=== PATIENT | female | born 1960 | race Caucasian/White ===

== ENCOUNTER 2018-05-06 01:45 | Inpatient (IN) | payer OTHER ==
[2018-05-06] VITALS (7 sets, daily range): BP systolic 108–132; BP diastolic 55–112
[~2018-05-06] VITALS: Ht 160 cm; Wt 110.7 kg
--- NOTE | 2018-05-06 02:02 | NUR ---
PT TAKEN TO BED 3
--- NOTE | 2018-05-06 02:05 | NUR ---
Sung kaur in [facility] - 05/06/18 at 0207 by MALOU PT TAKEN TO BED 3
[2018-05-06] MEDS ORDERED: PRON INH (02:07)
[2018-05-06] MEDS ORDERED: ERY250 PO (02:07)
--- NOTE | 2018-05-06 02:10 | NUR ---
PATIENT PRESENTS TO ED WITH COUGH AND SOB. PT STATES THAT SHE FEELS LIKE SHE IS HAVING A HARD TIME CATCHING HER BREATH WAS TAKEN AN INHALER AT HOME W/O RELIEF. +NAUSEA; DENIES V/D; SKIN IS PINK/WARM/DRY; AAOX4 WITH EVEN AND STEADY GAIT; LUNG SOUNDS - AUDIBLE WHEEZING THROUGH OUT; HR EVEN AND REGULAR; PT DENIES ANY FEVER OR CP; PATIENT STATES PAIN OF 0/10 AT THIS TIME; VSS; PATIENT POSITIONED FOR COMFORT; HOB ELEVATED; BEDRAILS UP X2; BED DOWN. ER MD MADE AWARE OF PT STATUS. PMH--KIDNEY STONES, LITHOTRIPSY RX--DENIES
--- NOTE | 2018-05-06 02:14 | NUR ---
Dr. Otero evaluating patient at bedside.
[2018-05-06] MEDS ORDERED: MAG SULF 2000 MG/WATER PREMIX 50 ML IV ONE (02:20)
[2018-05-06] MEDS ORDERED: methylPREDNISolone SS 125 MG/2 ML VIAL IVP ONE (02:20)
[2018-05-06] MEDS ORDERED: NACL 0.9% 1,000 ML IV ONE (02:20)
[2018-05-06] MEDS ORDERED: ALBUTEROL SULFATE/IPRATROPIU 3 ML SOL IH ONE ×2 (02:20→03:00)
--- NOTE | 2018-05-06 02:25 | NUR ---
Respiratory Therapist at bedside for respiratory intervention
--- NOTE | 2018-05-06 02:31 | NUR ---
RT AT BEDSIDE.
[2018-05-06 02:33] LABS: BASOPHILS # (AUTO) 0.1 K/uL (0.00-0.22); BASOPHILS % (AUTO) 1.5 % (0.0-2.0); EOSINOPHILS # (AUTO) 0.1 K/uL (0-0.4); EOSINOPHILS % (AUTO) 1.6 % (0.0-4.0); HEMATOCRIT 42.7 % (36-48); HEMOGLOBIN 13.8 g/dL (12.0-16.0); LYMPHOCYTES # (AUTO) 2.8 K/uL (2.5-16.5); LYMPHOCYTES % (AUTO) 43.2 % (20.5-51.1); MEAN CORPUSCULAR HEMOGLOBIN 27 pg (27-31); MEAN CORPUSCULAR HGB CONC 32 g/dL (33-37); MEAN CORPUSCULAR VOLUME 84.3 fL (80-94); MONOCYTES # (AUTO) 0.7 K/uL (0.8-1.0); MONOCYTES % (AUTO) 10.2 % (1.7-9.3); NEUTROPHILS # (AUTO) 2.8 K/uL (1.8-7.7); NEUTROPHILS % (AUTO) 43.5 % (42.2-75.2); PLATELET COUNT (AUTO) 209 K/uL (140-450); RED BLOOD CELL COUNT(AUTO) 5.06 MIL/uL (4.20-5.40); RED CELL DISTRIBUTION WIDTH 14.3 % (11.6-13.7); WHITE BLOOD COUNT (AUTO) 6.4 K/uL (4.8-10.8)
--- NOTE | 2018-05-06 02:35 | NUR ---
X-RAY AT BEDSIDE.
[2018-05-06 02:48] LABS: ANION GAP 9.5 (8-16); CREATININE 0.8 mg/dL (0.6-1.3); POTASSIUM 3.5 mmol/L (3.5-5.1); TOTAL BILIRUBIN 0.2 mg/dL (0.0-1.0)
[2018-05-06 02:53] LABS: PROTHROMBIN TIME 9.3 secs (10.8-13.4)
--- NOTE | 2018-05-06 04:00 | NUR ---
Patient will be admitted to care of Dr. Nichols. Admited to Tele. Will go to [id number]. Belongings list completed. Report to Dawson JONES.
--- NOTE | 2018-05-06 04:05 | NUR ---
ADMITTED THIS 57 YEAR OLD FROM ER PER VIKASH WITH CC OF COUGH, CONGESTION AND SOB FOR 3 WEEKS, AMBULATED TO BED WITH STEADY GAIT, ASSESSMENT DONE, PT ON OXYGEN VIA NASAL CANNULA AT 2L, WITH DRY COUGH NOTED, COMPLAINING OF CHEST WALL/MUSCLE PAIN WHEN COUGHING, VITAL SIGNS STABLE, 94% SAT, SKIN INTACT WITH HEALED SURGICAL WOUND FROM ABDOMEN, ORIENTED TO ROOM AND CALL LIGHT, PLAN OF CARE DISCUSSED, SAFETY MEASURES IN PLACE, CALL LIGHT WITHIN REACH.
[2018-05-06] MEDS: guaiFENesin/CODEINE 100/10MG 5 ML UDC PO PRN ×2 (05:28→20:17)
--- NOTE | 2018-05-06 05:30 | NUR ---
PAGED DR VERA FOR ADMIT ORDERS, ORDERS CARRIED OUT, MEDICATED PRN WITH COUGH MEDICATION, NO RESP DISTRESS AT THIS TIME, MONITORED CLOSELY.
--- NOTE | 2018-05-06 07:16 | NUR ---
PT SLEEPING, EASILY AROUSABLE, NO DISTRESS NOTED, REPORT GIVEN TO RN ROSHNI FOR CONTINUITY OF CARE.
--- NOTE | 2018-05-06 07:23 | NUR ---
RECEIVED BEDSIDE REPORT FROM CIGAR MACHINE FEEDER RN FOR CONTINUITY OF CARE. PT IN STABLE CONDITION. SATURATING 92% ON 2L NC. NO WHEEZING, LUNGS CTA. NO S/S DISTRESS. RESPIRATIONS EVEN AND UNLABORED. HEART RHYTHM REGULAR. PT C/O CHEST WALL MUSCLE PAIN WITH COUGHING. DRY COUGH, NO SPUTUM. RECEIVED PRN COUGH MEDICATION ALREADY. PATIENT WILL DISCUSS WITH DR. CLEMENTS. ACTIVE BS IN ALL QUADRANTS. ABDOMEN SOFT AND NON-DISTENDED. SKIN INTACT. PT IS AMBULATORY WITHOUT ASSIST. IV SITE PATENT AND ASYMPTOMATIC. ALL SAFETY PRECAUTIONS IN PLACE, WILL CONTINUE TO MONITOR.
[2018-05-06] MEDS: ALBUTEROL SULFATE/IPRATROPIU 3 ML SOL IH SCH ×5 (08:03→23:29)
--- NOTE | 2018-05-06 08:18 | NUR ---
PATIENT HAS BEEN SCREENED AND CATEGORIZED HIGH NUTRITION RISK. PATIENT WILL BE SEEN WITHIN 1-2 DAYS OF ADMISSION. 05/06/18-05/07/[address]
[2018-05-06] MEDS ORDERED: ACETAMINOPHEN 325 MG TAB PO PRN (08:40)
[2018-05-06] MEDS: ENOXAPARIN 40 MG/0.4 ML SYR SUBQ SCH (09:00)
[2018-05-06] MEDS: BENZONATATE 100 MG CAPLF PO SCH ×3 (09:17→17:09)
[2018-05-06] MEDS: FAMOTIDINE 20 MG TAB PO SCH (09:17)
[2018-05-06] MEDS: AZITHROMYCIN 250 MG TAB PO SCH (09:17)
--- NOTE | 2018-05-06 10:11 | NUR ---
APPLIED K PAD TO CHEST- SORE MUSCLES.
[2018-05-06] MEDS: methylPREDNISolone SS 40 MG/ML VIAL IVP SCH ×2 (12:27→20:16)
--- NOTE | 2018-05-06 13:02 | NUR ---
PT STATES THE K PAD IS HELPING DECREASED THE CHEST WALL MUSCLE DISCOMFORT.
--- NOTE | 2018-05-06 13:44 | NUR ---
05/06/18 RD INITIAL ASSESSMENT COMPLETED PLEASE REFER TO NUTRITION ASSESSMENT UNDER CARE ACTIVITY FOR ESTIMATED NUTRITIONAL NEEDS. 1. CONTINUE REGULAR DIET TOLERATED 2. RD REVIEWED HEART HEALTHY DIET EDUCATION WITH PATIENT 3. RD TO FOLLOW-UP 5-7 DAYS, LOW RISK RODY ARRIAGA RD
--- NOTE | 2018-05-06 15:39 | NUR ---
PT RESTING IN BED, ON CELLPHONE. NO C/O PAIN OR DISCOMFORT. NO S/S RESPIRATORY DISTRESS. ALL SAFETY PRECAUTIONS IN PLACE, WILL CONTINUE TO MONITOR.
--- NOTE | 2018-05-06 19:28 | NUR ---
ENDORSED POC TO RETAIL ACCOUNT EXECUTIVE RN. PT IN STABLE CONDITION.
--- NOTE | 2018-05-06 19:30 | NUR ---
RECEIVED REPORT FROM DAYSHIFT NURSE AT BEDSIDE FOR CONTINUITY OF CARE. PT AAOX4. PT IV NOTED R HAND 20G TKO. NO SOB NO S/S OF DISTRESS ON RA. BED LOWERED CALL LIGHT WITHIN REACH WILL CONTINUE MONITOR.
[2018-05-07] MEDS: ALBUTEROL SULFATE/IPRATROPIU 3 ML SOL IH SCH ×3 (03:13→13:36)
[2018-05-07 04:00] VITALS: BP 136/65
[2018-05-07] MEDS: methylPREDNISolone SS 40 MG/ML VIAL IVP SCH ×2 (05:05→13:00)
--- NOTE | 2018-05-07 07:18 | NUR ---
RECEIVED PATIENT ON ROOM AIR, PULSE OX 96%. SCHEDULED BREATHING TREATMENTS ADMINISTERED. TOLERATED TX WELL, NO ADVERSE SIDE EFFECTS. NO RESPIRATORY DISTRESS NOTED AT THIS TIME. WILL CONTINUE TO MONITOR.
--- NOTE | 2018-05-07 07:27 | NUR ---
ENDORSED REPORT TO DAYSHIFT NURSE AT BEDSIDE FOR CONTINUITY OF CARE.
--- NOTE | 2018-05-07 07:30 | NUR ---
RECEIVED PT FROM NURSE MONITORING NURSESUMIT, PT IS AWAKE AND WALKING FROM THE BATHROOM TO THE BED, PT HAS AN IV LINE ON THE RT HAND G. 20 WITH NS AT TKO, 10ML/HR, INFUSING, INTACT, PT DENIES PAIN AND SOB. NO SIGN OF DISTRESS NOTED AND WILL MONITOR PT.
[2018-05-07 08:00] VITALS: BP 127/80
--- NOTE | 2018-05-07 08:00 | NUR ---
PT IS AWAKE AND VITAL SIGNS TAKEN AND IS WITHIN NORMAL LIMIT. NO SIGN OF DISTRESS NOTED AND WILL MONITOR PT.
[2018-05-07] MEDS: ENOXAPARIN 40 MG/0.4 ML SYR SUBQ SCH (09:00)
[2018-05-07] MEDS ORDERED: PRED20TA6 PO (09:12)
[2018-05-07] MEDS ORDERED: BENZ100C6 PO (09:12)
[2018-05-07] MEDS: BENZONATATE 100 MG CAPLF PO SCH ×2 (09:30→13:00)
[2018-05-07] MEDS: AZITHROMYCIN 250 MG TAB PO SCH (09:30)
[2018-05-07] MEDS: FAMOTIDINE 20 MG TAB PO SCH (09:30)
--- NOTE | 2018-05-07 09:32 | NUR ---
PT IS AWAKE AND ORAL MEDICATIONS WERE GIVEN AND PT TOLERATED IT, PT REFUSED TO TRAKE THE LOVENOX, BECAUSE PT VERBALIZED THAT SHE DID NOT WANT I BECAUSE SHE BELIEVES THAT HER BLOOD IS ALREADY THAT THIN AND SHE KNOW HOW TO MANAGE HER NOT HAVING CLOTS IN OTHER MANAGEMENT.
[2018-05-07 12:00] VITALS: BP 123/57
--- NOTE | 2018-05-07 13:00 | NUR ---
PT IS AWAKE AND SEATED ON THE BED, PT REFUSED MEDICATIONS AT THIS TIME.
--- NOTE | 2018-05-07 13:50 | NUR ---
PT'S HUMAN RESOURCES TALENT MANAGER WAS REMOVED AND WAS HANDED TO EVANS ARENAS. DISCHARGE PRESCRIPTION INSTRUCTION GIVEN TO PT AND VERBALIZED UNDERSTANDING.
--- NOTE | 2018-05-07 14:15 | NUR ---
DISCHARGE PT VIA WHEELCHAIR WITH THE , IV LINE AND ARM BAND REMOVED, DISCHARGE TEACHINGS AND INSTRUCTIONS GIVEN AND PT VERBALIZED UNDERSTANDING. PT IS STABLE AT THIS TIME.
== END 2018-05-07 14:15 | disposition home or self-care (01) | DRG 140 ==
LOC: MED 01:45 → MTU 03:37 → OBSVTOIN 16:34
PROVIDERS: ADMIT Internal Medicine; ATTEND Internal Medicine
DX: J44.0 Chronic obstructive pulmonary disease with (acute) lower respiratory infection (principal); R65.10 Systemic inflammatory response syndrome (SIRS) of non-infectious origin without acute organ dysfunction; E44.1 Mild protein-calorie malnutrition; Z68.41 Body mass index [BMI] 40.0-44.9, adult; J44.1 Chronic obstructive pulmonary disease with (acute) exacerbation; J20.9 Acute bronchitis, unspecified; E66.9 Obesity, unspecified; Z90.710 Acquired absence of both cervix and uterus; Z90.722 Acquired absence of ovaries, bilateral
CPT/HCPCS: 96374; 99285; G0378; 36415; 71045; 80053; 84484; 85025; 85610; 85730; 87081; 93005; 94640; J1650; J2920; J2930; J3475; J7620; Q0092

== ENCOUNTER 2018-12-02 06:01 | Emergency (ER) | payer OTHER ==
[~2018-12-02] VITALS: Ht 160 cm; Wt 112.5 kg
[~2018-12-02 06:01] MED LIST: BENZ100C6 PO; ERY250 PO; PRED20TA6 PO; PRON INH
[2018-12-02 06:11] VITALS: BP 169/100
[2018-12-02 07:23] LABS: BASOPHILS # (AUTO) 0.1 K/uL (0.00-0.22); BASOPHILS % (AUTO) 1.2 % (0.0-2.0); EOSINOPHILS # (AUTO) 0.2 K/uL (0-0.4); EOSINOPHILS % (AUTO) 2.6 % (0.0-4.0); HEMATOCRIT 42.7 % (36-48); LYMPHOCYTES # (AUTO) 3.8 K/uL (2.5-16.5); LYMPHOCYTES % (AUTO) 40.8 % (20.5-51.1); MEAN CORPUSCULAR HEMOGLOBIN 28 pg (27-31); MEAN CORPUSCULAR HGB CONC 33 g/dL (33-37); MEAN CORPUSCULAR VOLUME 84.5 fL (80-94); MONOCYTES # (AUTO) 0.6 K/uL (0.8-1.0); MONOCYTES % (AUTO) 6.6 % (1.7-9.3); NEUTROPHILS # (AUTO) 4.6 K/uL (1.8-7.7); NEUTROPHILS % (AUTO) 48.8 % (42.2-75.2); PLATELET COUNT (AUTO) 262 K/uL (140-450); RED BLOOD CELL COUNT(AUTO) 5.06 MIL/uL (4.20-5.40); RED CELL DISTRIBUTION WIDTH 15.4 % (11.6-13.7); WHITE BLOOD COUNT (AUTO) 9.4 K/uL (4.8-10.8)
[2018-12-02 07:27] LABS: ANION GAP 13.3 (8-16); CARBON DIOXIDE 27.9 mmol/L (21-32); CREATININE 0.7 mg/dL (0.6-1.3); POTASSIUM 4.2 mmol/L (3.5-5.1)
[2018-12-02 08:11] VITALS: BP 150/74
== END 2018-12-02 08:10 | disposition home or self-care (01) ==
LOC: MED 06:01
DX: R60.0 Localized edema (principal); R73.9 Hyperglycemia, unspecified; I10 Essential (primary) hypertension; Z79.899 Other long term (current) drug therapy; Z79.2 Long term (current) use of antibiotics; Z91.09 Other allergy status, other than to drugs and biological substances
CPT/HCPCS: 36415; 80048; 85025; 93970; 99284; Q0092

== ENCOUNTER 2018-12-29 14:53 | Emergency (ER) | payer OTHER ==
[~2018-12-29] VITALS: Ht 160 cm; Wt 108.0 kg
[2018-12-29 15:09] VITALS: BP 124/70
--- NOTE | 2018-12-29 15:11 | NUR ---
PT TO EMA PLUMMER. VSS. [id number]
--- NOTE | 2018-12-29 15:17 | NUR ---
PT AMBULATED TO BED 08.
--- NOTE | 2018-12-29 15:23 | NUR ---
PT TO ED WITH C/O L EAR PAIN. DENIES INJURY/TRAUMA TO EAR. NO FOREIGN BODY NOTED. PT STATES SHE IS UNABLE TO HEAR OUT OF LEFT EAR. ANSWERING QUESTIONS APPROPRIATLEY. IN BED FOR MD HILL.
[2018-12-29] MEDS ORDERED: KETOROLAC 30 MG/ML VIAL IM ONE (16:15)
[2018-12-29 16:44] VITALS: BP 106/65
--- NOTE | 2018-12-29 16:45 | NUR ---
Patient discharged with v/s stable. Written and verbal after care instructions given and explained. Patient alert, oriented and verbalized understanding of instructions. Ambulatory with steady gait. All questions addressed prior to discharge. ID band removed. Patient advised to follow up with PMD. Rx of OFLOXACIN, KEFLEX given. Patient educated on indication of medication including possible reaction and side effects. Opportunity to ask questions provided and answered.
== END 2018-12-29 16:45 | disposition home or self-care (01) ==
LOC: MED 14:53
DX: H66.92 Otitis media, unspecified, left ear (principal); H61.002 Unspecified perichondritis of left external ear; I10 Essential (primary) hypertension; Z79.51 Long term (current) use of inhaled steroids; Z79.2 Long term (current) use of antibiotics; Z79.899 Other long term (current) drug therapy; Z91.041 Radiographic dye allergy status
CPT/HCPCS: 96372; 99283; J1885

== ENCOUNTER 2019-01-02 14:07 | Observation (INO) | payer OTHER ==
[~2019-01-02] VITALS: Ht 160 cm; Wt 104.3 kg
--- NOTE | 2019-01-02 | NUR ---
CHECKED ON PATIENT, SLEEPING, NO COMPLAINTS AT THIS TIME Addendum: 01/03/19 at 1323 by Romelia Carpenter RN CHANGE DATE
--- NOTE | 2019-01-02 14:20 | NUR ---
ER AT BEDSIDE
[2019-01-02 14:23] VITALS: BP 143/73
--- NOTE | 2019-01-02 14:31 | NUR ---
BIB C/O MIRNA LEGS PAIN X YESTERDAY & WITNESS SYNCOPAL EPISODE AT LOBBY . DENIES N/V/D;PATIENT STATES PAIN OF 5/10 AT THIS TIME; PATIENT POSITIONED FOR COMFORT; HOB ELEVATED; BEDRAILS UP X1; BED DOWN. ER MD MADE AWARE OF PT STATUS.
[2019-01-02 15:44] LABS: BASOPHILS # (AUTO) 0.1 K/uL (0.00-0.22); BASOPHILS % (AUTO) 0.7 % (0.0-2.0); EOSINOPHILS # (AUTO) 0.2 K/uL (0-0.4); HEMOGLOBIN 14.7 g/dL (12.0-16.0); LYMPHOCYTES # (AUTO) 3.6 K/uL (2.5-16.5); LYMPHOCYTES % (AUTO) 44.4 % (20.5-51.1); MEAN CORPUSCULAR HEMOGLOBIN 28 pg (27-31); MEAN CORPUSCULAR HGB CONC 33 g/dL (33-37); MEAN CORPUSCULAR VOLUME 86.2 fL (80-94); MONOCYTES # (AUTO) 0.4 K/uL (0.8-1.0); MONOCYTES % (AUTO) 5.6 % (1.7-9.3); NEUTROPHILS # (AUTO) 3.8 K/uL (1.8-7.7); NEUTROPHILS % (AUTO) 47.3 % (42.2-75.2); PLATELET COUNT (AUTO) 276 K/uL (140-450); RED BLOOD CELL COUNT(AUTO) 5.23 MIL/uL (4.20-5.40); RED CELL DISTRIBUTION WIDTH 14.4 % (11.6-13.7)
[2019-01-02 16:07] LABS: ALBUMIN 3.9 g/dL (3.4-5.0); ANION GAP 13.8 (8-16); CARBON DIOXIDE 27.7 mmol/L (21-32); CREATININE 0.6 mg/dL (0.6-1.3); POTASSIUM 3.5 mmol/L (3.5-5.1); TOTAL BILIRUBIN 0.6 mg/dL (0.0-1.0)
--- NOTE | 2019-01-02 18:08 | NUR ---
Patient being reevaluated by DR FUNES at bedside.
[2019-01-02] MEDS ORDERED: HYDR-39 PO (18:55)
--- NOTE | 2019-01-02 19:10 | NUR ---
Pt report given to melissa frances. Transfer of care at this time.
[2019-01-02] MEDS ORDERED: ONDANSETRON 4 MG/2 ML VIAL IVP PRN (20:15)
--- NOTE | 2019-01-02 20:23 | NUR ---
PT TAKEN TO CT
--- NOTE | 2019-01-02 20:41 | NUR ---
PT RETURN FROM CT
--- NOTE | 2019-01-02 21:00 | NUR ---
RECEIVED PT FROM MED; A, A 0 X 4. AMBULATORY W/ STEADY GAIT, STANDY ASSIST FOR SYCOPE. 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 POC DISCUSSED ORIENTED TO UNIT. PLACED IN A COMFORTABLE POSITION, CALL LIGHT W/IN REACH. WILL CONTINUE TO MONITOR
--- NOTE | 2019-01-02 21:10 | NUR ---
PT ADMITTED TO [facility] RM 125B. PT TRANSFERRED VIA RPAOLI, STABLE CONDITION. REPORT GIVEN TO MIKE JONES. PT CARE TRANSFERRED TO RECEIVING RN.
--- NOTE | 2019-01-02 22:00 | NUR ---
MELVIN VISITED PT, STAYED FOR LESS THAN HOUR AND LEFT. WILL CONTINUE TO MONITOR
--- NOTE | 2019-01-02 22:36 | NUR ---
PT C/O OF HEADACHE, WILL CALL DOCTOR FOR AN ORDER
[2019-01-02] MEDS ORDERED: ACETAMINOPHEN 325 MG TAB PO PRN (22:40)
[2019-01-03] VITALS: BP 100/50
--- NOTE | 2019-01-03 | NUR ---
CHECKED ON PATIENT, SLEEPING, NO COMPLAINTS AT THIS TIME
--- NOTE | 2019-01-03 02:08 | NUR ---
PT TEXTING ON HER PHONE, SHE SAID SHE'S TALKING TO HER FRIENDS. NO COMPLAINTS; NO SIGNS AND SYMPTOMS OF SYNCOPE
--- NOTE | 2019-01-03 04:01 | NUR ---
PT TRYING TO GET SOME SLEEP, WENT TO THE BATHROOM, STEADY GAIT. NO SIGNS AND SYMPTOMS OF SYNCOPE
--- NOTE | 2019-01-03 06:30 | NUR ---
PT USED HER CALL LIGHT AND INFORMED THE NURSE THAT SHE WANTS TO GO TO THE BATHROOM, ADAMA EASLEY ACHECKED ON HER WHILE SHE WAS IN THE BATHROOM.
--- NOTE | 2019-01-03 06:40 | NUR ---
PATIENT HAS BEEN SCREENED AND CATEGORIZED HIGH NUTRITION RISK. PATIENT WILL BE SEEN WITHIN 1-2 DAYS OF ADMISSION. 01/04/19-01/05/19 MORENO AYERS MS, RDN
[2019-01-03 06:50] VITALS: BP 110/50
--- NOTE | 2019-01-03 07:15 | NUR ---
IN BETWEEN SHIFT CHANGE, WENT TO THE PT'S ROOM TO ENDORSE TO KAREN JAY, AND FOUND OUT THAT PT HAS LEFT THE UNIT .HER THINGS AND BAG WERE GONE. WITH THE TELEMONITOR AND HER DRESSING GOWN PLACED ON THE BED.
--- NOTE | 2019-01-03 07:30 | NUR ---
INFORMED SECURITY ELVIN,AND SHE WILL BE BACK TO CHECK ON THE DETAILS.
--- NOTE | 2019-01-03 07:45 | NUR ---
DR. JOSE GUADALUPE MOELLER CALLED BACK, AND AWARE THAT HIS PATIENT LEFT THE UNIT.
[2019-01-03] MEDS ORDERED: ENOXAPARIN 40 MG/0.4 ML SYR SUBQ SCH (09:00)
== END 2019-01-03 07:06 | disposition left against medical advice (07) ==
LOC: MED 14:07 → MMU 20:18
PROVIDERS: ADMIT Internal Medicine Pulmonary Disease; ATTEND Internal Medicine Pulmonary Disease
DX: I82.441 Acute embolism and thrombosis of right tibial vein (principal); R55 Syncope and collapse; I10 Essential (primary) hypertension
CPT/HCPCS: 36415; 36600; 70450; 71045; 80053; 82803; 84484; 85025; 85379; 85610; 87081; 93005; 93970; 99285; G0378; Q0092

== ENCOUNTER 2019-01-20 13:56 | Emergency (ER) | payer OTHER ==
[~2019-01-20] VITALS: Ht 160 cm; Wt 99.8 kg
[~2019-01-20 13:56] MED LIST changes: -BENZ100C6 PO; -ERY250 PO; +HYDR-39 PO; -PRED20TA6 PO; -PRON INH
[2019-01-20 13:59] VITALS: BP 160/92
--- NOTE | 2019-01-20 14:07 | NUR ---
Patient transferred to bed 9 via wheelchair. RN evaluating patient at bedside.
--- NOTE | 2019-01-20 14:26 | NUR ---
PATIENT IS COMPLAINING OF CONTINOUS PAIN IN THE RIGHT CALF, AND PAIN IN THE LEFT LEG THAT RADIATES TO HER HIP. NO REDNESS, SWELLING, OR WARMTH NOTED IN BOTH LEGS. PAIN 9/10. PATIENT WAS PREVIOUSLY SEEN IN THE ER A MONTH AGO AND ULTRASOUND RESULTS IN SUPERFICIAL THROMBOSIS. PATIENT STATES SIGNS AND SYMPTOMS ARE SIMILAR AT THIS TIME. PATIENT IS ALERT AND ORIENTED, BED IN LOWEST POSITION, LOCKED, BED RAIL UPX1.
--- NOTE | 2019-01-20 14:31 | NUR ---
DOCTOR SYLVIE IS IN ROOM WITH PATIENT
--- NOTE | 2019-01-20 15:08 | NUR ---
X RAY TECHNICIANS AT BEDSIDE
[2019-01-20] MEDS ORDERED: KETOROLAC 60 MG/2 ML VIAL IM ONE (15:10)
--- NOTE | 2019-01-20 15:33 | NUR ---
PAIN 9, TORADOL ADMINISTERED IM
--- NOTE | 2019-01-20 15:33 | NUR ---
ULTRASOUND IS AT BEDSIDE
--- NOTE | 2019-01-20 16:38 | NUR ---
Dr. Barrett is evaluating the patient at bedside.
[2019-01-20 16:51] VITALS: BP 156/93
--- NOTE | 2019-01-20 16:51 | NUR ---
Patient discharged with v/s stable. Written and verbal after care instructions given and explained REGARDING LEG PAIN. PT INSTRUCTED NO DVT PRESENT. PT GIVEN ALL COPIES OF PREVIOUS US RESULTS. Patient alert, oriented and verbalized understanding of instructions. Ambulatory with steady gait. All questions addressed prior to discharge. ID band removed. Patient advised to follow up with PMD. Rx of NORCO AND NAPROSYN given. Patient educated on indication of medication including possible reaction and side effects. Opportunity to ask questions provided and answered. PT GIVEN EXCUSE FOR WORK AND PHYSICAL ACTIVITY THROUGH THE 01/22/19 PT INSTRU[address]ED TO NOT DRIVE AFTER TAKING NORCO PT VERBALIZES PAIN 06/24 UPON DISCHARGE Addendum: 01/20/19 at 1657 by [email or web address] PT WHEELCHAIRED
--- NOTE | 2019-01-20 16:51 | NUR ---
PT WHEELCHAIRED TO CAR BY VELIA MIDDLETON
== END 2019-01-20 16:51 | disposition home or self-care (01) ==
LOC: MED 13:56
DX: M25.552 Pain in left hip (principal); M25.562 Pain in left knee; R03.0 Elevated blood-pressure reading, without diagnosis of hypertension; J45.909 Unspecified asthma, uncomplicated; Z90.710 Acquired absence of both cervix and uterus; Z79.899 Other long term (current) drug therapy; Z88.5 Allergy status to narcotic agent; Z98.890 Other specified postprocedural states
CPT/HCPCS: 72170; 73502; 73562; 93970; 96372; 99284; J1885; Q0092